=== PATIENT | male | born 1965 | race Caucasian/White ===

== ENCOUNTER → 2022-03-21 09:48 | Outpatient (CLI) | payer BC, SELFPAY ==
--- NOTE | ~2022-03-21 | CT_ITS ---
EXAMINATION: CT abdomen pelvis wo con DATE: 03/21/2022 10:20 INDICATION: Calcium kidney stone TECHNIQUE: Computed tomography (CT) of the abdomen and pelvis was performed without intravenous contr ast. The dose-length product (DLP) was 562.04 mGy-cm. Automated exposure control and iterative recons truction technique were employed. COMPARISON: 07/02/2019 FINDINGS: The lung bases are clear. The heart size is normal. A stone is present in the nondistended gallbladder. Punctate calcifications in otherwise normal appearing liver and spleen likely represent healed granulomatous disease. Splenules are noted adjacent to the inferior pole of the spleen. There is fatty replacement of the pancreas. The adrenal glands are unremarkable. There are punctate nonobst ructing stones of the right kidney. Small nonobstructing left kidney stones measure up to [address] ones are present in the ureters or bladder. There is no hydronephrosis or hydroureter. No pathologica lly enlarged abdominal or pelvic lymph nodes are identified. There is no free intraperitoneal gas or evidence of bowel obstruction. There are changes of appendectomy. There is mild lumbar spondylosis. IMPRESSION: 1. No CT correlate for the patient's symptoms. Bilateral nonobstructing nephrolithiasis. Reviewed, dictated and finalized at location F. IMPRESSION: 1. No CT correlate for the patient's symptoms. Bilateral nonobstructing nephrol ithiasis.
--- NOTE | ~2022-03-21 | XR_ITS ---
EXAMINATION: XR abdomen/kub 1V INDICATION: Right lower quadrant pain, calcium kidney stone TECHNIQUE: Supine views of the abdomen were obtained on 2 radiographs. COMPARISON: None FINDINGS: There is a 3 mm calcification of the left mid kidney. Phleboliths are noted in the pelvis. The bowel gas pattern is normal. The visualized osseous structures are unremarkable. IMPRESSION: 1. Left nephrolithiasis. Reviewed, dictated and finalized at location F. IMPRESSION: 1. Left nephrolithiasis.
== END ==
PROVIDERS: PCP Urology; Visit Provider Urology
DX: N20.0 Calculus of kidney (principal)
CPT/HCPCS: 74018; 74176

== ENCOUNTER → 2022-03-29 12:57 | Outpatient (CLI) | payer BC, SELFPAY ==
--- NOTE | ~2022-03-29 | CT_ITS ---
EXAMINATION: CT sinus wo con DATE: 03/29/2022 13:30 INDICATION: Congestion and headache TECHNIQUE: Computed tomography (CT) of the paranasal sinuses was performed without intravenous contra st. The dose-length product was 287.97 mGy-cm. Automated exposure control and iterative reconstructio n technique were employed. COMPARISON: CT dated 06/04/2018 FINDINGS: There is no significant mucosal thickening, fluid or mucoperiosteal reaction. There is righ tward nasal septal deviation. Ostiomeatal units are patent. No midline shift. No ventriculomegaly. Ma stoids are pneumatized. IMPRESSION: 1. No significant sinus disease. Reviewed, dictated and finalized at location B.
== END ==
DX: J32.8 Other chronic sinusitis (principal); R05.3 Chronic cough
CPT/HCPCS: 70486

== ENCOUNTER → 2022-05-09 13:05 | Outpatient (CLI) | payer BC, SELFPAY ==
--- NOTE | ~2022-05-09 | XR_ITS ---
EXAMINATION: XR chest 2V 05/09/2022 13:25 INDICATION: Cough PROCEDURE: 2 view chest COMPARISON: No prior studies for comparison. FINDINGS: The lungs are clear. The cardiomediastinal silhouette is within normal limits. There are no pleural effusions. There is no pneumothorax suspected. The lungs are hyperinflated which is cons istent with, but not diagnostic of chronic obstructive pulmonary disease. IMPRESSION: 1: NO ACUTE CARDIOPULMONARY DISEASE. Reviewed, dictated and finalized at location A.
== END ==
DX: R05.3 Chronic cough (principal)
CPT/HCPCS: 71046

== ENCOUNTER → 2022-07-22 14:25 | Outpatient (CLI) | payer MEDICARE, BC, SELFPAY ==
--- NOTE | ~2022-07-22 | DEXA_ITS ---
Bone Density Report Name: BLADIMIR LEYVA Age: 57 Sex: Male Ethnicity: White Date of : 1965 Indication: parental hip fracture; history of glucocorticoids; asthma or emphysema; Referring Provider: FREDDY, GLEN Dejesus Study: Bone densitometry was performed. Exam Date: July 22, 2022 Accession number: [id number] Bone Density: Region BMD T-score Z-score Classification AP Spine (L1-L4) 1.363 2.5 3.1 Normal Femoral Neck (Left) 1.061 1.0 1.9 Normal Total Hip (Left) 1.318 1.9 2.3 Normal Femoral Neck (Right) 0.970 0.3 1.2 Normal Total Hip (Right) 1.273 1.6 2.0 Normal Total Hip Mean 1.296 1.8 2.2 Normal World Health Organization criteria for BMD impression classify patients as: Normal (T-score at or above -1.0), Osteopenia (T-score between -1.0 and -2.5), or Osteoporosis (T-score at or below -2.5). 10-year Fracture Risk: FRAX not reported because: All T-scores for Spine Total, Hip Total, Femoral Neck at or above -1.0 Clinical Information Provided by Patient: Parent has had a hip fracture Has taken Glucocorticoids Has used the following medications: Vitamin D, MULTI VITAMIN Has the following medical conditions: Asthma or Emphysema Patient maximum height was 74 Drinks caffeinated beverages Impression: The patient has normal bone mass. The patient has risk factors, including: parental hip fracture, history of glucocorticoid therapy. Discussion: BONE DENSITY IS ABOVE THE MINIMUM DESIRABLE LEVEL AT ALL SKELETAL SITES TESTED. This patient?s bone mineral density is above the minimum desirable level (T-score -1.0 or better) at all sites measured. The patient should follow a healthful lifestyle (good nutrition with adequate calcium and vitamin D, and appropriate weight-bearing exercise). Follow-Up: Consider repeating this study in 5 years or sooner if there is some new clinical indication. Reported by: [facility] on 07/22/2022 2:57:00 PM. Reviewed, dictated and finalized at location AChang GAMEZ
== END | disposition home or self-care (01) ==
PROVIDERS: PCP Physician Assistant; Visit Provider Physician Assistant
DX: Z13.820 Encounter for screening for osteoporosis (principal); M47.819 Spondylosis without myelopathy or radiculopathy, site unspecified
CPT/HCPCS: 77080